=== PATIENT | female | born 1985 | race Caucasian/White ===

== ENCOUNTER 2020-03-30 10:49 | Emergency (ER) | payer OTHER ==
[2020-03-30 11:04] VITALS: BP 137/91
[2020-03-30] MEDS ORDERED: ACETAMINOPHEN WITH CODEINE #3 TABLET PO ONE (11:46)
--- NOTE | 2020-03-30 12:07 | ER Document Report ---
HPI - HPI Patient complains to provider of: Dog bite Time Seen by Provider: 03/30/20 11:40 Pain Level: 2 Notes: 34-year-old female to the emergency department with complaints of a dog bite to her right forearm that occurred just prior to arrival. She states she is visiting her family and had let her [employer] dog out in the backyard. She states that the next-door neighbor's great Jurgen was barking at the [place] when it busted through the fence and tried to attack her dog. She states that she grabbed her dog to protect it and the neighbors dog bit her on the arm. She states it is a small bite but she is concerned because there is no much swelling around it. She is up-to-date on her tetanus shot. - ROS Systems Reviewed and Negative: Yes All other systems reviewed and negative - CONSTITUTIONAL Constitutional: DENIES: Fever, Chills - EENT EENT: DENIES: Sore Throat, Ear Pain, Congestion - NEURO Neurology: DENIES: Headache, Weakness, Vision blurred - CARDIOVASCULAR Cardiovascular: DENIES: Chest pain - RESPIRATORY Respiratory: DENIES: Trouble Breathing, Coughing - GASTROINTESTINAL Gastrointestinal: DENIES: Abdominal Pain, Nausea, Patient vomiting, Diarrhea - MUSCULOSKELETAL Musculoskeletal: REPORTS: Extremity pain Notes: Right forearm pain with dog bite - DERM Skin Color: Normal Skin Problems: Puncture Wound - Dog bite to the right forearm Past Medical History - General Information source: Patient - Social History Smoking Status: Current Every Day Smoker Frequency of alcohol use: None Drug Abuse: None Family History: Reviewed & Not Pertinent Patient has homicidal ideation: Yes Vertical Provider Document - CONSTITUTIONAL Exam Limitations: No Limitations General Appearance: WD/WN, Mild Distress Notes: Mild pain distress - HEENT HEENT: Atraumatic, Normocephalic, PERRLA - NECK Neck: Normal Inspection, Supple - RESPIRATORY Respiratory: Breath Sounds Normal, No Respiratory Distress. negative: Rales, Rhonchi, Wheezing - CARDIOVASCULAR Cardiovascular: Regular Rate, Regular Rhythm, No Murmur - GI/ABDOMEN Gastrointestinal: Abdomen Soft, Abdomen Non-Tender, No Organomegaly - MUSCULOSKELETAL/EXTREMETIES Notes: There is tenderness to palpation to the right dorsal forearm with noted small 1 cm puncture wound from dog bite. Surrounding the dog bite there is ecchymosis and edema. There is no tenderness to palpation to the right hand, right elbow, right shoulder. Mildly decreased handgrip with 4 out of 5 strength in the right hand likely due to pain in the forearm. Patient has full range of motion of all fingers against resistance with 5 out of 5 strength in testing of both flexor tendons and extensor tendon. Cap refill is less than 2 seconds. Radial pulses intact and equal - NEURO Level of Consciousness: Awake, Alert Motor/Sensory: No Motor Deficit, No Sensory Deficit - DERM Integumentary: Warm, Dry, Laceration - Puncture wound from dog bite to the right dorsal forearm Course - Re-evaluation Re-evalutation: Impression: Dog bite with arm contusion. X-ray with no retained foreign body and no broken bone. Will start on Augmentin for the dog bite. Encouraged icing the arm and elevating it. The dog bite is small and will leave it open for healing. Patient agrees with the plan. Will discharge home. - Vital Signs Vital signs: Temp Pulse Resp BP Pulse Ox 99.1 F 78 16 137/91 H 98 03/30/20 11:03 03/30/20 11:03 03/30/20 11:03 03/30/20 11:03 03/30/20 11:03 Discharge - Discharge Clinical Impression: Dog bite of right forearm Qualifiers: Encounter type: initial encounter Qualified Code(s): S51.851A - Open bite of right forearm, initial encounter Arm contusion Qualifiers: Encounter type: initial encounter Laterality: right Qualified Code(s): S40.021A - Contusion of right upper arm, initial encounter Condition: Stable Disposition: HOME, SELF-CARE Instructions: Animal Bites ([facility]) Additional Instructions: Today on x-ray did not have any evidence for retained teeth from the dog or any fractures. The wound will be left open to heal. Please take all antibiotics without fail. Clean the wound twice a day with warm soapy water. Return if any worsening pain, fevers, streaking redness. Elevate and ice the forearm. Ice for 20 minutes at a time 3 times a day. Prescriptions: Amoxicillin/Potassium Clav [Augmentin 875-125 Tablet] 1 tab PO BID #20 tablet Ketorolac Tromethamine [Toradol 10 mg Tablet] 10 mg PO Q8H PRN #12 tablet PRN Reason: Referrals: HARPER RAMOS DO [NO LOCAL MD] - Follow up in 1 week (for wound check with PCP) [facility] [Provider Group] - Follow up in 1 week (for wound check with PCP)
--- NOTE | 2020-03-30 12:20 | RADIOLOGY REPORT (SQ) ---
EXAM DESCRIPTION: FOREARM RIGHT IMAGES COMPLETED DATE/TIME: 03/30/2020 12:07 pm REASON FOR STUDY: dog bite, eval retained FB and for fracture COMPARISON: None. NUMBER OF VIEWS: Two views. TECHNIQUE: Two radiographic images acquired of the right forearm, including elbow and wrist in at le ast one projection. LIMITATIONS: None. FINDINGS: MINERALIZATION: Normal. BONES: No acute fracture. No worrisome bone lesions. SOFT TISSUES: No obvious swelling or foreign body. OTHER: No other significant finding. IMPRESSION: NEGATIVE STUDY OF THE RIGHT FOREARM. NO RADIOGRAPHIC EVIDENCE OF ACUTE INJURY. TECHNICAL DOCUMENTATION: JOB ID: [id number] 2010 [employer]- All Rights Reserved Reading location - IP/workstation name: [email or web address]
[2020-03-30] MEDS ORDERED: BACITRACIN OPH OINT 3.5 GM TP ONE (12:34)
== END 2020-03-30 13:15 | disposition home or self-care (01) ==
LOC: ER 10:49
DX: S51.851A Open bite of right forearm, initial encounter (principal); W54.0XXA Bitten by dog, initial encounter; Y93.89 Activity, other specified; S40.021A Contusion of right upper arm, initial encounter; X58.XXXA Exposure to other specified factors, initial encounter; F17.200 Nicotine dependence, unspecified, uncomplicated
CPT/HCPCS: 99283; 73090; J3490